=== PATIENT | female | born 1960 | race Caucasian/White ===

== ENCOUNTER 2016-09-21 05:50 | Day surgery (SDC) | payer OTHER ==
[~2016-09-21] VITALS: Ht 160 cm; Wt 83.6 kg
[~2016-09-21 05:50] MED LIST: BACL10TA PO; DULO30CA2 PO; FLUT16H NASAL; GABA-533 PO; HYDR-309 PO; IBUP-1547 PO; METF500T4 PO; METO-323 PO; MOME13HF IH; MONT10TA21 PO; OMEP20 PO; SIMV-261 PO; TRAZ-144 PO; VITAD5000 PO
[2016-09-21] MEDS ORDERED: SODIUM CHLORIDE 0.9% 1,000 ML IV ONE ×2 (06:09→06:15)
[2016-09-21 06:52] LABS: GLUCOSE,POINT OF CARE 134 MG/DL (70-110)
[2016-09-21] MEDS ORDERED: FentaNYL CITRATE-PF 100 MCG/2 ML VIAL ONE (07:30)
[2016-09-21] MEDS ORDERED: MIDAZOLAM HCL 2 MG/2 ML VIAL ONE (07:30)
[2016-09-21] MEDS ORDERED: MethylPREDNISolone SOD SUCC 125 MG/2 ML VIAL IVP ONE (08:00)
[2016-09-21] MEDS ORDERED: OXYGEN THERAPY IH SCH (08:00)
[2016-09-21] MEDS ORDERED: MethylPREDNISolone SOD SUCC 125 MG/2 ML VIAL ONE (08:37)
[2016-09-21] MEDS ORDERED: BENZOCAINE 20% 50 MCG/SPRAY 57 GM TP ONE (17:20)
[2016-09-21] MEDS ORDERED: LIDOCAINE HCL 2% 30 ML JELLY TP ONE (17:20)
[2016-09-21] MEDS ORDERED: EPINEPHrine 1:1,000 [1 MG/ML] AMP IVP ONE (17:20)
[2016-09-21] MEDS ORDERED: LIDOCAINE HCL 4% 50 ML SOLUTION TP ONE (17:20)
[2016-09-21] MEDS ORDERED: ALBUTEROL SULFATE 2.5 MG/0.5 ML NEB SOLUTION NEB ONE (17:20)
== END 2016-09-21 09:30 | disposition home or self-care (01) ==
LOC: SURGERY 05:50
PROVIDERS: ATTEND Internal Medicine Critical Care Medicine
DX: J38.4 Edema of larynx (principal); B37.0 Candidal stomatitis; E11.9 Type 2 diabetes mellitus without complications; J45.909 Unspecified asthma, uncomplicated; M54.30 Sciatica, unspecified side; M54.9 Dorsalgia, unspecified; Z88.8 Allergy status to other drugs, medicaments and biological substances; Z98.890 Other specified postprocedural states
CPT/HCPCS: 31623; 31624; 71010; 82962; 87015; 87070; 87101; 87205; 87220; 87252; J0171; J2250; J2930; J3010; J7030; 88108; 88312